=== PATIENT | female | born 1975 | race African-American/Black ===

== ENCOUNTER 2024-03-17 17:04 | Emergency (ER) | payer SELFPAY ==
[~2024-03-17] VITALS: Ht 175.3 cm; Wt 82.0 kg
[2024-03-17 17:10] VITALS: O2SAT 100
[2024-03-17 18:08] LABS: HEMATOCRIT. 44.5 % (36.0-48.0); HEMOGLOBIN. 15.5 g/dL (12.0-16.0); MEAN CORPUSCULAR HEMOGLOBIN 33.7 pg (28.0-32.0); MEAN CORPUSCULAR HGB CONC 34.7 g/dL (31.0-37.0); MEAN PLATELET VOLUME 7.7 fl (7.4-10.4); PLATELET 206 x1000/uL (130-400); RED BLOOD CELL COUNT 4.59 mill/uL (4.2-5.4); WHITE BLOOD COUNT 10.4 x1000/uL (4.5-11.0)
[2024-03-17 18:09] LABS: DIFFERENTIAL COMMENT 1
[2024-03-17 18:12] LABS: CHLORIDE 102 mEq/L (98-107); POTASSIUM 3.4 mEq/L (3.5-5.1); SODIUM 133 mEq/L (136-145)
[2024-03-17 18:13] LABS: CARBON DIOXIDE 24 mEq/L (21-32)
[2024-03-17 18:14] LABS: CALCIUM 9.5 mg/dL (8.7-10.4)
[2024-03-17 18:18] LABS: GLUCOSE 101 mg/dL (70-105)
[2024-03-17 18:19] LABS: UREA NITROGEN BLOOD 7 mg/dL (9-23)
[2024-03-17 18:34] LABS: PLATELET ESTIMATE NORMAL
[2024-03-17 19:34] LABS: CLARITY URINE CLEAR (CLEAR); COLOR URINE YELLOW (YELLOW); GLUCOSE URINE NEGATIVE (NEGATIVE); KETONES URINE TRACE (NEGATIVE); LEUKOCYTE ESTERASE URINE NEGATIVE (NEGATIVE); NITRITE URINE NEGATIVE (NEGATIVE); OCCULT BLOOD URINE TRACE (NEGATIVE); PH URINE 5.5 (4.5-8.0); PROTEIN URINE 1+ (NEGATIVE); SPECIFIC GRAVITY URINE 1.017 (1.005-1.030); UROBILINOGEN URINE 0.2 E.U./dL (0.2-1.0)
[2024-03-17 19:46] LABS: WBC URINE 0-2 /hpf (0-2)
[2024-03-17 19:47] LABS: BACTERIA URINE NONE SEEN; RBC URINE 0-2 /hpf (0-2); SQUAMOUS EPITHELIAL CELL URINE RARE /lpf (RARE/1+)
[2024-03-17 20:00] VITALS: TEMP 101.1
[2024-03-17] MEDS: SODIUM CHLORIDE 0.9% 1,000 ML IV ONE (20:00)
[2024-03-17] MEDS: MAGNESIUM/ALUMINUM HYDROXIDE/SIMETHICONE 30ML UDC PO ONE (20:00)
[2024-03-17] MEDS: PANTOPRAZOLE 40MG DR TABLET PO ONE (20:00)
[2024-03-17] MEDS: ACETAMINOPHEN 325MG TABLET PO ONE (20:00)
[2024-03-17] MEDS: ONDANSETRON HCL 4MG/2ML INJ IV ONE (20:00)
[2024-03-17] MEDS: KETOROLAC 30MG/ML VIAL IV ONE (22:26)
[2024-03-17] MEDS ORDERED: TOPUD MT (22:33)
[2024-03-17] MEDS ORDERED: FAMO40TA70 MT (22:33)
[2024-03-17] MEDS ORDERED: METR375C2 MT (22:33)
[2024-03-17] MEDS ORDERED: ONDA4TAB50 MT (22:33)
[2024-03-17 22:50] VITALS: BP 138/80; PULSE 80; RESP 20
== END 2024-03-17 22:59 | disposition home or self-care (01) ==
LOC: ER 17:04
DX: K52.89 Other specified noninfective gastroenteritis and colitis (principal); F19.90 Other psychoactive substance use, unspecified, uncomplicated
CPT/HCPCS: 99285; 96374; 96361; 96375; 80048; 81003; 81025; 83690; 85025; 36415; J1885; J2405; J7030